=== PATIENT | female | born 1995 | race Caucasian/White ===

== ENCOUNTER 2020-04-18 08:45 | Inpatient (IN) | payer OTHER ==
[~2020-04-18] VITALS: Ht 160 cm; Wt 57.6 kg
[2020-04-18] VITALS (8 sets, daily range): BP systolic 91–120; BP diastolic 43–60
[2020-04-18] MEDS ORDERED: SINGULAIR 10 MG10 MG PO (08:52)
[2020-04-18 09:12] LABS: ABSOLUTE BASOPHILS 0.1 thou/uL (0.0-0.2); ABSOLUTE EOSINOPHILS 0.7 thou/uL (0.0-0.7); ABSOLUTE LYMPHOCYTES 2.2 thou/uL (0.8-5.3); ABSOLUTE MONOCYTES 0.4 thou/uL (0.0-1.2); ABSOLUTE NEUTROPHILS 5.2 thou/uL (1.6-8.1); BASOPHILS 0.7 %; EOSINOPHILS 8.6 %; HEMATOCRIT 41.6 % (37.0-47.0); HEMOGLOBIN 14.4 gm/dL (12.0-15.0); LYMPHOCYTES 25.8 %; MCHC 34.5 g/dL (28.0-37.0); MCV 89.7 fL (80.0-100.0); MONOCYTES 4.3 %; MPV 9.2 fl. (7.2-11.1); NUCLEATED RBCS 0 /100WBC; PLATELET COUNT* 221 thou/uL (150-400); POLYS 60.6 %; RBC 4.63 mil/uL (4.20-5.00); RDW-CV 12.4 % (10.5-14.5); WBC 8.7 thou/uL (4.0-11.0)
[2020-04-18 09:17] LABS: CALCIUM 8.3 mg/dL (8.5-10.1); POTASSIUM 3.5 mmol/L (3.5-5.1)
[2020-04-18 09:21] LABS: ALBUMIN 4.2 g/dL (3.4-5.0); MAGNESIUM 1.9 mg/dL (1.8-2.4); TOTAL BILIRUBIN 0.6 mg/dL (<0.1-1.0); TOTAL PROTEIN 8.1 g/dL (6.4-8.2)
[2020-04-18 09:34] LABS: BE -3.2 mmol/L (-2 to +3); PCO2 33.3 mmHg (35.0-45.0); pH 7.411 (7.340-7.450)
[2020-04-18 09:54] LABS: URINE BILIRUBIN NEGATIVE (Negative); URINE BLOOD TRACE (Negative); URINE CLARITY CLEAR; URINE COLOR YELLOW; URINE GLUCOSE-RANDOM NEGATIVE (Negative); URINE KETONES NEGATIVE (Negative); URINE LEUKOCYTES-REFLEX 1+ (Negative); URINE NITRITE-REFLEX NEGATIVE (Negative); URINE PROTEIN NEGATIVE (Negative); URINE UROBILINOGEN 0.2 E.U./dl (0.2-1.0)
[2020-04-18 10:01] LABS: SQUAMOUS >10 Many /LPF (0-3)
[2020-04-18 10:02] LABS: CASTS None Seen /LPF (None Seen); CRYSTALS None Seen /LPF (None Seen); MUCUS 4-6 Moderate strn/LPF (None Seen); URINE RBC 0-2 Rare /HPF (0-2); URINE WBC-REFLEX 0-5 Rare /HPF (0-5)
--- NOTE | 2020-04-18 13:20 | NUR ---
PT TO ROOM ICU 6 VIA CART. O2@2L-99%. NO RESP DISTRESS NOTED. PT DENIES SOA OR CHEST PAIN. PT NSR ON MONITOR. DISCUSSED PRECAUTIONS WITH DR CORONADO. PT IS NOT IN ENHANCED PRECAUTIONS
[2020-04-18] MEDS ORDERED: PROAIR HFA8.5 GM INH (13:39)
[2020-04-18 16:32] LABS: APTT 29.2 Seconds (25.0-31.3); INR 1.1; PROTIME 10.9 Seconds (9.20-11.50)
--- NOTE | 2020-04-18 16:57 | NUR ---
PT RESTING IN BED THROUGHOUT SHIFT. NO APPARENT DISTRESS. O2 SATS IN UPPERS 90S ON 2L NC. STACH ON MONITOR. REPORTS IMPROVED SOA. TOLERATING PO WELL. VOIDING PER BSC
--- NOTE | 2020-04-18 20:44 | NUR ---
RECEIVED REPORT AND ASSUMED CARE AT 1900. VSS. ICU MONITORING IN PLACE. PT DENIES COMPLAINTS OF PAIN. ASSESSMENT COMPLETED CHARTED. DISCUSSED PLAN OF CARE. VERBALIZED UNDERSTANDING. BED LOCKED IN LOWEST POSITION, CALL LIGHT WITHIN REACH.
[2020-04-19] VITALS (7 sets, daily range): BP systolic 82–94; BP diastolic 41–53
[2020-04-19 02:39] LABS: HEMATOCRIT 37.2 % (37.0-47.0); HEMOGLOBIN 12.7 gm/dL (12.0-15.0); MCHC 34.1 g/dL (28.0-37.0); MCV 90.9 fL (80.0-100.0); MPV 10.4 fl. (7.2-11.1); NUCLEATED RBCS 0 /100WBC; PLATELET COUNT* 199 thou/uL (150-400); RDW-CV 12.4 % (10.5-14.5); WBC 17.4 thou/uL (4.0-11.0)
[2020-04-19 03:04] LABS: ALBUMIN 3.4 g/dL (3.4-5.0); CALCIUM 8.2 mg/dL (8.5-10.1); CREATININE 0.7 mg/dL (0.6-1.3); MAGNESIUM 2.3 mg/dL (1.8-2.4); POTASSIUM 4.4 mmol/L (3.5-5.1); TOTAL BILIRUBIN 0.4 mg/dL (<0.1-1.0); TOTAL PROTEIN 6.5 g/dL (6.4-8.2)
--- NOTE | 2020-04-19 04:35 | NUR ---
ASSUMED CARE AT 0300H, ON BED SLEEPING. NO DISTRESS. CONTINUE MONITORING AND TOWARD GOALS. STILL ON NC AT 2LPM AND TOLERATED.
[2020-04-19 05:18] LABS: ABSOLUTE LYMPHOCYTES 0.7 thou/uL (0.8-5.3); ABSOLUTE NEUTROPHILS 16.7 thou/uL (1.6-8.1); PLATELET ESTIMATE ADEQUATE
--- NOTE | 2020-04-19 19:45 | NUR ---
I ASSUMED CARE OF THE PATIENT A TRANSFER FROM [facility] AT 1120. SHE IS ALERT AND ORIENTED X4 AND IS UP WITH STAND BY ASSIST. BED IS IN THE LOW LOCKED POSITION AND CALL LIGHT IS IN REACH. HOURLY ROUNDING IS COMPLETED AND PATIENT NEEDS ARE MET. I AGREE WITH THE PRIOR NURSES ASSESSMENT. PAIN IS DENIED. VITALS REMAIN STEADY AFTER FLUIDS WERE STARTED. WILL CONTINUE TO MONITOR.
[2020-04-20 00:38] VITALS: BP 108/85
[2020-04-20 05:04] VITALS: BP 113/73
[2020-04-20 08:00] VITALS: BP 107/54
[2020-04-20 12:00] VITALS: BP 103/57
--- NOTE | 2020-04-20 15:27 | NUR ---
CM SPOKE TO THE PT TO DISUCSS DISCHARGE PLANNING NEEDS. PT IS A&O, INDEPENDENT, ACTIVE AND WORKS. PT DOES NOT HAVE ANY INSURANCE. PT WILL NEED A MED ASSIST EVALUATION. CM TO PROVIDE PT WITH COMMUNITY RESOURCE LIST AND MED ASSIST CO-PAY CARD. PT MAY NEED ASSISTANCE WITH COST OF MEDICATIONS DEPENDING ON WHAT MEDICATION IS ORDERED.
[2020-04-20 16:07] VITALS: BP 103/49
--- NOTE | 2020-04-20 17:00 | NUR ---
ASSUMED PT CARE AT 07:15 AM REPORT RECEIVED FROM NURSE. PT IS AOX4. ON RA. VSS. TRACING ST ON RN PHYSICIAN OFFICE. LOW GRADE FEVER. TYLENOL GIVEN. IV ABX HANGED. IV STEROID GIVEN TO PATIENT. IV NS STOPPED. PT GOT A SHOWER THIS AM.DENIES PAIN. WILL CONTINUE TO MONITOR
[2020-04-20 20:00] VITALS: BP 105/63
[2020-04-21] VITALS: BP 113/63
[2020-04-21 04:00] VITALS: BP 120/87
[2020-04-21 05:02] LABS: HEMATOCRIT 36.1 % (37.0-47.0); HEMOGLOBIN 12.1 gm/dL (12.0-15.0); MCH 30.5 pg (26.0-34.0); MCHC 33.6 g/dL (28.0-37.0); MCV 90.9 fL (80.0-100.0); MPV 9.7 fl. (7.2-11.1); RBC 3.98 mil/uL (4.20-5.00); RDW-CV 12.7 % (10.5-14.5); WBC 16.9 thou/uL (4.0-11.0)
[2020-04-21 05:20] LABS: ALBUMIN 3.3 g/dL (3.4-5.0); CALCIUM 7.9 mg/dL (8.5-10.1); CREATININE 0.7 mg/dL (0.6-1.3); POTASSIUM 3.9 mmol/L (3.5-5.1); TOTAL BILIRUBIN 0.4 mg/dL (<0.1-1.0); TOTAL PROTEIN 6.5 g/dL (6.4-8.2)
--- NOTE | 2020-04-21 07:40 | NUR ---
ASSUMED CARE OF PATIENT THIS MORNING FROM NIGHT NURSE. PT IS DOING WELL AND EXPECTING DISCHARGE TODAY. SHE WAS EDUCATED ON POC AND DISEASE PROCESS, WILL CONTINUE TO MONITOR.
[2020-04-21 08:00] VITALS: BP 111/66
[2020-04-21] MEDS ORDERED: PREDNISONE 10 M10 MG PO (09:18)
[2020-04-21] MEDS ORDERED: LEVAQUIN 500 M500 M1 PO (09:18)
[2020-04-21] MEDS ORDERED: PROAIR HFA8.5 GM INH (09:18)
[2020-04-21] MEDS ORDERED: SINGULAIR 10 MG10 MG PO (09:18)
[2020-04-21 10:50] VITALS: BP 120/87
[2020-04-21 12:10] VITALS: BP 126/67
--- NOTE | 2020-04-21 12:35 | CON ---
[address] [address] CONSULTATION Name: PHUC DAILEY Room: [address] IN .R.#: [id number] Admission: 04/18/20 Attend Phys: Beba Orellana MD Discharge: Date of : 89 Report #: [id number] THIS REPORT FOR: //name// cc: LANCE Edgar family physician/PCP LANCE - Tala family physician/PCP ~ THIS REPORT FOR: //name// CC: [facility] physician/PCP Beba Orellana DATE OF SERVICE: 04/18/2020 CONSULT REQUESTED BY: Dr. Orellana. INDICATION FOR CONSULTATION: Asthma exacerbation. HISTORY OF PRESENT ILLNESS: A 25-year-old female. She says that she is a lifetime nonsmoker, does have a history of bronchial asthma, presented with acute shortness of breath of several days' duration. The patient has been wheezing, has been coughing, has been bringing up clear as well as white sputum, has not had chest pain. Does not describe upper respiratory complaints with the exception of some nasal allergies, which are at baseline. There is no swelling of lower extremities. There is no calf pain. She has not had a fever or chills. There is no body aches. She does report a reduction in appetite and weakness. Recently, the patient has been complaining of anxiety. REVIEW OF SYSTEMS: I performed a 14-point review of systems. The patient's review of systems is negative except as mentioned above. PAST MEDICAL HISTORY: Bronchial asthma. SOCIAL HISTORY: Lifetime nonsmoker. No known history of heavy alcohol use or illegal drug use. CURRENT MEDICATIONS: List in [facility] reviewed. HOME MEDICATIONS: List also in [facility] reviewed. Note that the patient's only asthma medications listed are Singulair and albuterol inhaler p.r.n. The patient does have a hormonal implant in her left arm for control. FAMILY HISTORY: No pertinent family history. PHYSICAL EXAMINATION: GENERAL: She is alert, awake and oriented. She does appear to be anxious. VITAL SIGNS: Has a pulse of 100 and a blood pressure of 101/54. She is saturating 96%. She is on 3 liters nasal cannula. [place] [address] CONSULTATION Name: PHUC DAILEY Room: [address]#: [id number] Admission: 04/18/20 Attend Phys: Beba Orellana MD Discharge: Date of : 89 Report #: [id number] initial O2 saturation of 85% on room air. Respiratory rate has been variable, most early it is charted in the teens in the records. At the time of my examination, it was higher at around 26-27. The patient also has been tachycardic. At the time of my examination, her heart rate was 120, but mostly heart rate in the [facility] is around in the range of 90-105 and a sinus rhythm. She is afebrile with T-max of 37.2. Body mass index is on the lower side at 22.5. HEENT: Head is normocephalic and atraumatic. There is mild throat erythema. There is no thrush in her throat. NECK: Does not show raised JVP, asymmetry, mass or lymph nodes. CHEST: Symmetrical expansion on inspection and palpation. On auscultation, breath sounds are decreased, expirations are prolonged. Breath sounds are bilaterally equal. There are wheezes heard both inspiratory and expiratory, more expiratory. HEART: Regular, tachycardia noted. ABDOMEN: Soft and nontender. EXTREMITIES: Lower extremities show no edema, no calf tenderness. SKIN: Dry and intact. NEUROLOGICAL: Moves all extremities bilaterally equally and spontaneously with no focal deficit identified. LABORATORY DATA: The patient's chest x-ray is reviewed. It does show some hyperinflation consistent with bronchial asthma. Chest x-ray is otherwise unremarkable. The hilar markings are somewhat more prominent. There is a vague radiopaque density in the right middle lobe. The patient's CBC as well as chemistries are in [facility] reviewed. I had a stat D-dimer performed, which is 0.29. The patient's test is negative. The patient's arterial blood gas, which was performed earlier when she was on a BiPAP, does show a respiratory alkalosis as well as a mild metabolic acidosis. This is consistent with acute respiratory insufficiency secondary to bronchial asthma. ASSESSMENT AND PLAN: 1. Acute respiratory insufficiency. This is secondary to an asthma exacerbation. I did consider the possibility of acute pulmonary emboli, considering that the patient also has hormonal contraception with an implant, therefore performed a D-dimer. This is, however, not elevated, which makes it unlikely. 2. Bronchial asthma exacerbation. Agree with current therapy. I in fact increased the Solu-Medrol dose further for tonight. We will reevaluate tomorrow and cut back the dose tomorrow morning. If the patient does do well, we will continue with current nebulized bronchodilators. The patient also is on Singulair, long-term. The patient in addition to Singulair does need to be on an inhaled corticosteroid as well as a long-acting beta-2 agonist and she also is a potential candidate for long-term therapy with either Xolair or eosinophil antagonists. I understand that the patient has recently changed jobs and further evaluation regarding what therapy [place] [address] CONSULTATION Name: PHUC DAILEY Room: [address] IN .R.#: [id number] Admission: 04/18/20 Attend Phys: Beba Orellana MD Discharge: Date of : 89 Report #: [id number] is also needed. We will follow. 3. Acute bacterial bronchitis. The patient does have some sputum production. She is on ceftriaxone as well as Levaquin. I did not make any change in antibiotics at this time. We will follow sputum results. Also, follow the vague radiopaque density in the right middle lobe with another x-ray in the morning as well, but I do not see any definite infiltrate. If the patient improves, then perhaps will be inclined to cut back on antibiotic therapy tomorrow. 4. Anxiety. I feel that a significant component of this as well. Would defer followup to the primary service. 5. Fluid and electrolytes. The patient appears to be well hydrated at this time. I did not discontinue her IV fluids as the patient's blood pressure is on the lower side. We will be inclined to discontinue IV fluid in the morning. 6. Deep venous thrombosis prophylaxis, Lovenox. Gastrointestinal prophylaxis, on Pepcid. 7. Clostridium difficile prophylaxis. We will add Florastor. The patient is critically ill, secondary to a severe exacerbation of bronchial asthma. Total time spent providing critical care to this patient today is 39 minutes. <ELECTRONICALLY SIGNED> By: Mode Reese MD 04/21/20 [id number] Reese MD /nt
--- NOTE | 2020-04-21 15:51 | NUR ---
PT WENT HOME WITH A LIST OF HOME MEDICATION AND DISCHARGE INSTRUCTIONS.
--- NOTE | 2020-04-21 16:29 | NUR ---
GEENA spoke with pt about pt to dc home today; pt is ready and in agreement with plan. SW provided the medication assistance resources and discussed assistance for a one time rx coverage. Pt signed and received copy, GEENA faxed form to [employer] and form in pt chart. Pt has ride home. No other CM needs expressed. GEENA was told by [facility] that pt is not eligible for Medicaid at this time.
== END 2020-04-21 15:46 | disposition home or self-care (01) | DRG 189 ==
LOC: M.ERS 08:45 → M.TBA-ER 10:24 → M.ICU 13:34 → M.ORTHSURG 04-19 07:28 → M.2W 04-19 11:24
PROVIDERS: Internal Medicine; Internal Medicine Critical Care Medicine; Personal Emergency Response Attendant; ADMIT Internal Medicine; ATTEND Internal Medicine
DX: J96.01 Acute respiratory failure with hypoxia (principal); J45.41 Moderate persistent asthma with (acute) exacerbation; J20.8 Acute bronchitis due to other specified organisms; F41.9 Anxiety disorder, unspecified; I95.9 Hypotension, unspecified; Z88.1 Allergy status to other antibiotic agents; Z79.899 Other long term (current) drug therapy; Z20.828 Contact with and (suspected) exposure to other viral communicable diseases